=== PATIENT | female | born 1990 | race Caucasian/White ===

== ENCOUNTER 2018-11-09 06:27 | Day surgery (SDC) | payer BC ==
[2018-11-08 12:05] VITALS: BP 105/66
[2018-11-08 12:19] LABS: BASOPHILS % (AUTO) 0.6 % (0.0-5.0); EOSINOPHILS % (AUTO) 1.6 % (0.0-8.0); HEMATOCRIT 34.9 % (36-48); LYMPHOCYTES % (AUTO) 26.3 % (21.0-51.0); MEAN CORPUSCULAR HGB CONC 33.6 g/dL (32.0-36.0); MEAN CORPUSCULAR VOLUME 83.4 fL (79-99); MONOCYTES % (AUTO) 6.3 % (3.0-13.0); NEUTROPHILS % (AUTO) 65.2 % (40.0-77.0); PLATELET COUNT (AUTO) 309 K/uL (130-400); RED BLOOD CELL COUNT(AUTO) 4.19 MIL/uL (4.00-5.50); RED CELL DISTRIBUTION WIDTH 13.5 % (11.0-15.5)
[~2018-11-09] VITALS: Ht 162.6 cm; Wt 54.3 kg
[~2018-11-09 06:27] MED LIST: EXCEES PO; LACTATED RINGERS 1000ML 1,000 ML IV SCH; PREN1TAB80 PO
[2018-11-09 06:40] VITALS: BP 114/76
[2018-11-09] MEDS ORDERED: LIDOCAINE PF 2% 5ML ABBOJECT ONE (06:50)
[2018-11-09] MEDS ORDERED: MIDAZOLAM HCL 1 MG/ML 2ML VIAL ONE (06:50)
[2018-11-09] MEDS ORDERED: PROPOFOL 10 MG/ML 20ML VIAL IV ONE (06:50)
[2018-11-09] MEDS ORDERED: FENTANYL CITRATE PF 50 MCG/1 ML 2ML VIAL ONE ×2 (06:51)
[2018-11-09] MEDS ORDERED: OXYTOCIN 10 USP UNITS/ML ONE (07:48)
[2018-11-09] MEDS ORDERED: CARBOPROST TROMETHAMINE 250 MCG/ML AMP IM ONE (07:55)
[2018-11-09] MEDS ORDERED: DEXAMETHASONE SOD PHOSPHATE 10MG/ML 1ML VIAL ONE (07:58)
[2018-11-09] MEDS ORDERED: ONDANSETRON HCL 4 MG/2 ML VIAL ONE (07:58)
[2018-11-09 08:50] VITALS: BP 109/76
[2018-11-09 09:03] VITALS: BP 117/72
[2018-11-09 09:18] VITALS: BP 119/68
== END 2018-11-09 09:30 | disposition home or self-care (01) ==
LOC: DAH 06:27
PROVIDERS: ATTEND Specialist
DX: O02.1 Missed abortion (principal)
CPT/HCPCS: 36415; 59820; 85025; 88305; A4606; J1100; J2001; J2250; J2405; J2590; J2704; J3010 ×2; J3490; J7120 ×2

== ENCOUNTER 2019-09-06 09:18 | Day surgery (SDC) | payer BC ==
[2019-09-05 18:50] VITALS: BP 118/62
[2019-09-06] VITALS (9 sets, daily range): BP systolic 103–123; BP diastolic 66–73
[~2019-09-06] VITALS: Ht 167.6 cm; Wt 57.5 kg
[~2019-09-06 09:18] MED LIST changes: +ENOX40DI8 SQ; -LACTATED RINGERS 1000ML 1,000 ML IV SCH; +PNV11TAB5 PO; +PROGESTERONE RC
[2019-09-06] MEDS ORDERED: FOLIC (09:57)
[2019-09-06] MEDS ORDERED: LACTATED RINGERS 1000ML 1,000 ML IV ONE (10:15)
[2019-09-06 10:40] LABS: BASOPHILS % (AUTO) 0.6 % (0.0-5.0); EOSINOPHILS % (AUTO) 2.8 % (0.0-8.0); HEMATOCRIT 33.5 % (36-48); LYMPHOCYTES % (AUTO) 18.5 % (21.0-51.0); MEAN CORPUSCULAR HEMOGLOBIN 29.5 pg (27.0-33.0); MEAN CORPUSCULAR HGB CONC 34.3 g/dL (32.0-36.0); MEAN CORPUSCULAR VOLUME 86.2 fL (79-99); MONOCYTES % (AUTO) 5.2 % (3.0-13.0); NEUTROPHILS % (AUTO) 72.9 % (40.0-77.0); PLATELET COUNT (AUTO) 264 K/uL (130-400); RED BLOOD CELL COUNT(AUTO) 3.88 MIL/uL (4.00-5.50); RED CELL DISTRIBUTION WIDTH 13.8 % (11.0-15.5); WHITE BLOOD COUNT (AUTO) 6.8 K/uL (4.8-10.8)
[2019-09-06] MEDS ORDERED: ONDANSETRON HCL 4 MG/2 ML VIAL ONE (15:08)
[2019-09-06] MEDS ORDERED: EPHEDRINE SULFATE 50 MG/ML AMPULE ONE (15:10)
--- NOTE | 2019-09-06 16:20 | NUR ---
POST RECEIVED PT FROM L&D , S/P CERVICAL CERCLAGE UNDER SPINAL ANESTHESIA , PT UNABLE TO MOVE LEGS. STATES FEELS "NUMB". VS STABLE ON ARRIVAL. PLAN OF CARE DISCUSS WITH PATIENT / FAMILY, CALL LIGHT WITHIN REACH,
--- NOTE | 2019-09-06 18:35 | NUR ---
VOID PATIENT VOIDED IN THE RESTROOM WITH NURSES ASSISTANCE. PT DENIED ANY PAIN OR DISCOMFORTS. PT ABLE TO MOVE HER LEGS SHE WAS ABLE TO AMBULATE WITH NO COMPLICATIONS, FAMILY AT BEDSIDE. DC INSTRUCTIONS GIVEN TO PT/ PTS MOM WITH RX, INSTRUCTED TO F/U WITH DR. ORTA.
--- NOTE | 2019-09-06 18:55 | NUR ---
DC PT DC HOME VIA WC, NO DISTRESS NOTED. PT DENIED ANY PAIN OR DISCOMFORTS. PT ACCOMPANIED BY SPOUSE AND MOM
== END 2019-09-06 18:55 | disposition home or self-care (01) ==
LOC: DAH 09:18
PROVIDERS: ATTEND Specialist
DX: O34.32 Maternal care for cervical incompetence, second trimester (principal); O99.612 Diseases of the digestive system complicating pregnancy, second trimester; K21.9 Gastro-esophageal reflux disease without esophagitis; Z79.899 Other long term (current) drug therapy; Z3A.18 18 weeks gestation of pregnancy
CPT/HCPCS: 36415; 59320; 85025; A4215; A4221; A4222; A4223 ×2; A4663; J2405; J3490; J7120 ×2

== ENCOUNTER 2019-10-06 11:31 | Inpatient (IN) | payer BC ==
[~2019-10-06] VITALS: Ht 162.6 cm; Wt 62.1 kg
[~2019-10-06 11:31] MED LIST changes: -EXCEES PO; +FOLIC; -PREN1TAB80 PO; -PROGESTERONE RC
[2019-10-06] MEDS: LACTATED RINGERS 1000ML 1,000 ML IV PRN ×2 (12:10→22:43)
[2019-10-06] MEDS ORDERED: CALCIUM GLUCONATE 1 GM/10 ML VIAL IV PRN (12:15)
[2019-10-06] MEDS ORDERED: PHARMACY COMMUNICATION MISC SCH ×2 (12:15→12:30)
[2019-10-06 12:32] VITALS: BP 113/75
[2019-10-06 12:54] LABS: HEMATOCRIT 30.3 % (36-48); MEAN CORPUSCULAR HEMOGLOBIN 29.6 pg (27.0-33.0); MEAN CORPUSCULAR HGB CONC 34.4 g/dL (32.0-36.0); MEAN CORPUSCULAR VOLUME 86.1 fL (79-99); PLATELET COUNT (AUTO) 314 K/uL (130-400); RED BLOOD CELL COUNT(AUTO) 3.52 MIL/uL (4.00-5.50); RED CELL DISTRIBUTION WIDTH 13.1 % (11.0-15.5); WHITE BLOOD COUNT (AUTO) 9.9 K/uL (4.8-10.8)
[2019-10-06 12:57] LABS: APPEARANCE,URINE Clear (CLEAR); BILIRUBIN,URINE Negative (NEGATIVE); COLOR,URINE Yellow (YELLOW); GLUCOSE, URINE (UA) Negative (NEGATIVE); KETONES,URINE Trace mg/dL (NEGATIVE); LEUKOCYTE ESTERASE ,URINE Negative (NEGATIVE); NITRATE,URINE Negative (NEGATIVE); OCCULT BLOOD,URINE Moderate (NEGATIVE); PROTEIN,URINE Negative (NEGATIVE); UROBILINOGEN,URINE 0.2 mg/dL (0.2-1.0)
[2019-10-06] MEDS: CELESTONE SOLUSPAN 6 MG/ML 5ML VIAL IM SCH (12:57)
[2019-10-06] MEDS: MAGNESIUM SULFATE IM SCH (13:00)
[2019-10-06] MEDS: SODIUM CHLORIDE 0.9% IM SCH (13:00)
[2019-10-06 13:06] LABS: BACTERIA,URINE Rare /HPF (None Seen); RBC,URINE 0-1 /HPF (0-1); SQUAMOUS EPITHELIAL CELL,UR Rare /HPF (0-2); WBC,URINE 0-1 /HPF (0-1)
[2019-10-06] MEDS ORDERED: ENOXAPARIN SODIUM 40 MG/0.4 ML SYRINGE SQ SCH (21:00)
[2019-10-07 08:11] LABS: HEPATITIS Bs ANTIGEN SCREEN P Negative (Negative)
[2019-10-07 08:29] LABS: RAPID PLASMA REAGIN NONREACTIVE (NONREACTIVE)
[2019-10-07] MEDS ORDERED: PHARMACY COMMUNICATION MISC SCH (09:00)
[2019-10-07] MEDS: ACETAMINOPHEN 325 MG TAB PO PRN (13:01)
[2019-10-07] MEDS: CELESTONE SOLUSPAN 6 MG/ML 5ML VIAL IM SCH (13:01)
[2019-10-07] MEDS: ENOXAPARIN SODIUM 40 MG/0.4 ML SYRINGE SQ SCH (21:18)
[2019-10-08] MEDS: LACTATED RINGERS 1000ML 1,000 ML IV PRN (01:05)
[2019-10-08] MEDS: MAGNESIUM SULFATE 1,000 ML IV PRN (03:34)
[2019-10-08] MEDS: ACETAMINOPHEN 325 MG TAB PO PRN (07:11)
[2019-10-08] MEDS: ENOXAPARIN SODIUM 40 MG/0.4 ML SYRINGE SQ SCH (21:18)
[2019-10-09] MEDS: MAGNESIUM SULFATE 1,000 ML IV PRN (00:11)
[2019-10-09] MEDS: LACTATED RINGERS 1000ML 1,000 ML IV PRN (03:29)
[2019-10-09] MEDS: ACETAMINOPHEN 325 MG TAB PO PRN (04:19)
[2019-10-09] MEDS ORDERED: AZITHROMYCIN 250 MG TABLET PO SCH (14:30)
[2019-10-09] MEDS ORDERED: PSEUDOEPHEDRINE HCL 30 MG TAB PO PRN (14:30)
[2019-10-09] MEDS ORDERED: ACETAMINOPHEN EXTRA STRENGTH 500 MG TABLET PO PRN (14:30)
[2019-10-09] MEDS: ENOXAPARIN SODIUM 40 MG/0.4 ML SYRINGE SQ SCH (21:00)
[2019-10-09] MEDS ORDERED: MAGNESIUM 4GM PREMIX 100ML 100 ML IV SCH (23:45)
[2019-10-09] MEDS ORDERED: CALCIUM GLUCONATE 1 GM/10 ML VIAL IV PRN (23:45)
[2019-10-09] MEDS ORDERED: MAGNESIUM SULFATE 1,000 ML IV PRN (23:45)
[2019-10-10] MEDS: LACTATED RINGERS 1000ML 1,000 ML IV PRN (01:00)
[2019-10-10 01:09] LABS: HEMATOCRIT 27.4 % (36-48); MEAN CORPUSCULAR HEMOGLOBIN 29.3 pg (27.0-33.0); MEAN CORPUSCULAR HGB CONC 34.2 g/dL (32.0-36.0); MEAN CORPUSCULAR VOLUME 85.5 fL (79-99); PLATELET COUNT (AUTO) 318 K/uL (130-400); RED BLOOD CELL COUNT(AUTO) 3.21 MIL/uL (4.00-5.50); RED CELL DISTRIBUTION WIDTH 12.8 % (11.0-15.5); WHITE BLOOD COUNT (AUTO) 13.3 K/uL (4.8-10.8)
[2019-10-10 08:11] LABS: INR 0.93 (0.85-1.15); PROTHROMBIN TIME 9.8 SEC (9.6-11.6)
[2019-10-10] MEDS ORDERED: AMPICILLIN 2GM+NS 100ML 100 ML IV ONE (08:14)
[2019-10-10] MEDS: AMPICILLIN 1GM+NS 50ML 50 ML IV SCH ×2 (08:15→12:15)
[2019-10-10] MEDS ORDERED: AMPICILLIN 2GM+NS 100ML 100 ML IV SCH (08:15)
[2019-10-10] MEDS ORDERED: BUTORPHANOL TARTRATE 2 MG/ML ONE (08:35)
[2019-10-10] MEDS ORDERED: BUTORPHANOL TARTRATE 2 MG/ML IVP SCH ×2 (08:45→09:45)
[2019-10-10] MEDS ORDERED: OXYTOCIN-LR 20 UNITS/1000 ML 1,000 ML IV ONE (08:47)
[2019-10-10] MEDS: OXYTOCIN-LR 20 UNITS/1000 ML 1,000 ML IV SCH ×2 (08:50→10:20)
[2019-10-10] MEDS ORDERED: METHYLERGONOVINE MALEATE 0.2 MG/1 ML ML ONE (09:22)
[2019-10-10] MEDS ORDERED: ACETAMINOPHEN 325 MG TAB PO PRN (09:30)
[2019-10-10] MEDS ORDERED: DIPH,PERTUSS(ACELL),TET VAC/PF 0.5 ML VIAL IM PRN (09:30)
[2019-10-10] MEDS ORDERED: IBUPROFEN 600 MG TABLET PO PRN (09:30)
[2019-10-10] MEDS ORDERED: ACETAMINOPHEN-CODEINE 300/30MG TAB PO PRN (09:30)
[2019-10-10] MEDS ORDERED: LANOLIN 30GM OINTMENT TP PRN (09:30)
[2019-10-10] MEDS ORDERED: WITCH HAZEL 1 PAD TP PRN (09:30)
[2019-10-10] MEDS ORDERED: BENZOCAINE/LANOLIN/ALOE VERA 60 ML AEROSOL TP PRN (09:30)
[2019-10-10] MEDS ORDERED: MEASLES/MUMPS/RUBELLA VACCINE, LIVE 0.5 ML/VIAL SQ PRN (09:30)
[2019-10-10] MEDS ORDERED: IBUPROFEN 800 MG TAB ONE (09:33)
--- NOTE | 2019-10-10 11:11 | NUR ---
EMOTIONAL SUPPORT Sw with pt's family and provided emotional support. Pt's mother Bijal Jackson working on arrangements.
[2019-10-10 11:52] VITALS: BP 116/87
--- NOTE | 2019-10-10 12:05 | NUR ---
PT LAYING IN BED WITH LIGHTS DIMMED LOW. SCANT BLEEDING NOTED. NO PAIN REPORTED AT THIS TIME. FAMILY REMAINED AT BEDSIDE WITH . PT. ORIENTED TO ROOM. ADVISED PT TO CALL WHEN NEEDING TO AMBULATE FOR THE FIRST TIME. PT AND VOICED UNDERSTANDING. CALL LIGHT LEFT IN REACH.
[2019-10-10] MEDS ORDERED: FLU VACC QS2019-20 36MOS UP/PF 60 MCG/0.5 ML ML IM SCH (13:15)
[2019-10-10] MEDS ORDERED: AZITHROMYCIN 250 MG TABLET PO SCH (14:30)
[2019-10-10 16:13] VITALS: BP 107/67
--- NOTE | 2019-10-10 16:47 | NUR ---
f/u Sw met with pt's mother. Pt sleeping. Mother provided with emotional support
[2019-10-10] MEDS ORDERED: FLU VACC QS2019-20 36MOS UP/PF 60 MCG/0.5 ML ML IM ONE (17:30)
[2019-10-10 19:15] VITALS: BP 112/71
[2019-10-10] MEDS: DOCUSATE SODIUM 100 MG CAP PO SCH (20:07)
[2019-10-10 23:30] VITALS: BP 101/62
[2019-10-11 03:47] VITALS: BP 106/63
[2019-10-11 07:00] LABS: HEMATOCRIT 27.7 % (36-48); MEAN CORPUSCULAR HEMOGLOBIN 29.4 pg (27.0-33.0); MEAN CORPUSCULAR HGB CONC 34.5 g/dL (32.0-36.0); MEAN CORPUSCULAR VOLUME 85.4 fL (79-99); PLATELET COUNT (AUTO) 351 K/uL (130-400); RED BLOOD CELL COUNT(AUTO) 3.25 MIL/uL (4.00-5.50); RED CELL DISTRIBUTION WIDTH 12.8 % (11.0-15.5); WHITE BLOOD COUNT (AUTO) 9.7 K/uL (4.8-10.8)
[2019-10-11 07:12] VITALS: BP 102/69
[2019-10-11] MEDS: AMPICILLIN 1GM+NS 50ML 50 ML IV SCH (08:15)
[2019-10-11] MEDS: LACTATED RINGERS 1000ML 1,000 ML IV PRN (08:30)
[2019-10-11] MEDS: SODIUM CHLORIDE 0.9% IM SCH (08:30)
[2019-10-11] MEDS: MAGNESIUM SULFATE IM SCH (08:30)
[2019-10-11] MEDS ORDERED: IBUPROFEN 800 MG TAB ONE (08:38)
--- NOTE | 2019-10-11 09:00 | NUR ---
ROUNDING ON PATIENT. POC DISCUSSED. PATIENT OKAY FOR DISCHARGE. QUESTIONS INVITED AND ANSWERED. PT VOICED UNDERSTANDING.
[2019-10-11] MEDS: DOCUSATE SODIUM 100 MG CAP PO SCH (10:27)
--- NOTE | 2019-10-11 10:50 | NUR ---
DISCHARGE PATIENT LEFT UNIT VIA WHEELCHAIR WITH BELONGINGS IN HAND ACCOMPANIED BY FAMILY MEMBERS. PERSONAL VEHICLE USED FOR TRANSPORTATION. NO COMPLAINTS OR CONCERNS ADDRESSED FROM PATIENT ON DISCHARGE.
== END 2019-10-11 10:50 | disposition home or self-care (01) | DRG 807 ==
LOC: EDH 11:31 → OBSVTOIN 11:42 → LDH 11:42 → WSH 10-10 11:47
PROVIDERS: ADMIT Specialist; ATTEND Specialist
PROC: 10E0XZZ Delivery of Products of Conception, External Approach (ICD-10-PCS; principal; 2019-10-10)
PROC: 3E02340 Introduction of Influenza Vaccine into Muscle, Percutaneous Approach (ICD-10-PCS; 2019-10-10)
PROC: 3E0234Z Introduction of Serum, Toxoid and Vaccine into Muscle, Percutaneous Approach (ICD-10-PCS; 2019-10-10)
PROC: 3E0134Z Introduction of Serum, Toxoid and Vaccine into Subcutaneous Tissue, Percutaneous Approach (ICD-10-PCS; 2019-10-10)
DX: O60.12X0 Preterm labor second trimester with preterm delivery second trimester, not applicable or unspecified (principal); Z37.0 Single live birth; O32.1XX0 Maternal care for breech presentation, not applicable or unspecified; O26.22 Pregnancy care for patient with recurrent pregnancy loss, second trimester; Z3A.22 22 weeks gestation of pregnancy; Z23 Encounter for immunization
CPT/HCPCS: 36415; 76805; 76815; 81001; 82120; 83735; 85027; 85384; 85610; 85730; 86592; 86701; 86850; 86900; 86901; 86922; 87340; 87390; 88305; 88312; A4314; A4606; G0378; J0290; J0595; J0702; J1650; J2210; J2590; J3475; J7120